=== PATIENT | female | born 1975 | race African-American/Black ===

== ENCOUNTER 2016-05-22 03:49 | Observation (INO) | payer OTHER ==
[~2016-05-22] VITALS: Ht 165.1 cm; Wt 102.1 kg
[2016-05-22 04:36] LABS: Basophils # (auto) 0 uL; Basophils % (auto) 0.6 % (0.0-2.0); Eosinophils # (auto) 0.1 uL; Eosinophils % (auto) 1.5 % (0.0-7.0); Hematocrit 39.8 % (36.0-46.0); Hemoglobin 12.9 g/dL (12.2-16.2); Lymphocytes # (auto) 1.4 uL; Lymphocytes % (auto) 28.8 % (10.0-50.0); Mean Corpuscular Hemoglobin 30.3 pg (28.0-32.0); Mean Corpuscular Hgb Conc. 32.6 g/dL (32.0-36.0); Mean Platelet Volume 9.6 fL (7.4-10.4); Monocytes # (auto) 0.4 uL; Monocytes % (auto) 7.6 % (0.0-12.0); Neutrophils % (auto) 61.5 % (37.0-80.0); Platelet Count (auto) 206 10^3/uL (140-450); Red Cell Distribution Width 14.3 % (11.6-16.0); White Blood Cell 4.8 10^3/uL (4.4-10.8)
[2016-05-22 04:53] LABS: Albumin 3.3 g/dL (3.4-5.0); Anion Gap 10 (5-15); Aspartate Aminotransferase 10 U/L (15-37); BUN/Creatinine Ratio 20.8; Blood Urea Nitrogen 20 mg/dL (7-18); Calcium 8.5 mg/dL (8.5-10.1); Carbon Dioxide 24 mmol/L (21-32); Chloride 112 mmol/L (98-107); GFR African American 83 mL/min; GFR Non-African American 68 mL/min; Glucose 115 mg/dL (74-106); Magnesium 2.3 mg/dL (1.6-2.6); Potassium 3.3 mmol/L (3.5-5.1); Sodium 146 mmol/L (136-145)
[2016-05-22 04:58] LABS: Alkaline Phosphatase 62 U/L (45-117); Bilirubin, Total 0.3 mg/dL (0.2-1.0); Total Protein 6.9 g/dL (6.4-8.2)
[2016-05-22 05:11] LABS: B-Type Natriuretic Peptide 9.48 pg/mL (0-100)
[2016-05-22] MEDS ORDERED: SODIUM CHLORIDE 0.9% 1,000 ML IV ONE (10:05)
[2016-05-22 10:58] LABS: Magnesium 2.5 mg/dL (1.6-2.6)
[2016-05-22] MEDS ORDERED: ACETAMINOPHEN 500 MG TAB PO ONE ×2 (11:15)
[2016-05-22 12:10] VITALS: BP 119/75
[2016-05-22] MEDS ORDERED: POTASSIUM CHL 10% (20 MEQ/15ML) ORAL SOLN PO ONE (12:30)
== END 2016-05-22 13:06 | disposition home or self-care (01) | DRG 203 ==
LOC: ER 03:55 → OVERFLOW 10:07 → ER 13:06
PROVIDERS: ADMIT Emergency Medicine; ATTEND Emergency Medicine
DX: R07.89 Other chest pain (principal); R55 Syncope and collapse; E87.6 Hypokalemia; F12.10 Cannabis abuse, uncomplicated; J45.909 Unspecified asthma, uncomplicated
CPT/HCPCS: 36415; 70450; 71020; 80053; 80320; 83735; 83880; 84443; 84484; 84702; 85025; 85379; 93005; 96360; 96361; G0378; G0434

== ENCOUNTER 2016-06-08 16:18 | Emergency (ER) | payer OTHER ==
[~2016-06-08] VITALS: Ht 165.1 cm; Wt 96.2 kg
[2016-06-08 21:00] VITALS: BP 140/87
[2016-06-08] MEDS ORDERED: ONDANSETRON ODT 4 MG TAB PO ONE (21:30)
== END 2016-06-08 22:16 | disposition home or self-care (01) ==
LOC: ER 16:20
DX: J45.909 Unspecified asthma, uncomplicated (principal); H92.03 Otalgia, bilateral
CPT/HCPCS: 81002; 99283; Q0162